=== PATIENT | male | born 1965 | race Caucasian/White ===

== ENCOUNTER → 2017-02-02 | Outpatient (CLI) | payer OTHER | LOC: BMCIMAGING 11:31 | PROVIDERS: ATTEND Emergency Medicine | DX: S22.32XA Fracture of one rib, left side, initial encounter for closed fracture (principal); M25.532 Pain in left wrist ==

== ENCOUNTER → 2017-02-14 | Outpatient (CLI) | payer BC, OTHER | LOC: BMCIMAGING 09:41 | PROVIDERS: ATTEND Family Medicine | DX: R07.81 Pleurodynia (principal); S22.32XA Fracture of one rib, left side, initial encounter for closed fracture | CPT/HCPCS: 71101-PO ==

== ENCOUNTER 2018-01-10 20:09 | Emergency (ER) | payer BC ==
[2018-01-10 20:46] LABS: PLATELET COUNT 214 10^3/uL (150-400)
--- NOTE | 2018-01-10 20:46 | EDPHY ---
H & P Stated Complaint: abd pain since Friday Time Seen by Provider: 01/10/18 20:22 HPI/ROS: CHIEF COMPLAINT: "I think I have a bowel obstruction" HISTORY OF PRESENT ILLNESS: 52-year-old male with abdominal history significant for remote bilateral inguinal herniorrhaphy complaining of progressive lower abdominal pain and distention for the past 5 days. No nausea or vomiting. No passing of gas. No testicular pain. No back or flank pain. No dyspnea. No trauma. PRIMARY CARE PROVIDER: REVIEW OF SYSTEMS: 10 systems reviewed and negative with the exception of the elements mentioned in the history of present illness PAST MEDICAL & SURGICAL HISTORY: Prior inguinal herniorrhaphy by Dr. Ramsey Kwon SOCIAL HISTORY:Nonsmoker, PHYSICAL EXAM (Prior to examination, patient consented to physical exam, hands were washed and my usual and customary physical exam procedures followed) 1) GENERAL: Well-developed, well-nourished, alert and oriented. Appears uncomfortable 2) HEAD: Normocephalic, atraumatic 3) HEENT: Pupils equal, round, reactive to light bilaterally. Sclera anicteric. Nasopharynx, oropharynx, clear, no lesions. Moist mucous membranes. 4) NECK: Full range of motion, no meningeal signs. 5) LUNGS: Clear auscultation bilaterally, no wheezes, no rhonchi, no retractions. 6) HEART: Regular rate and rhythm, no murmur, no heave, no gallop. 7) ABDOMEN: No guarding, tender to palpation left lower quadrant abdomen negative McBurney's, negative Archibald's, negative Rovsing's, negative peritoneal sign, 8) MUSCULOSKELETAL: Moving all extremities, no focal areas of tenderness, no obvious trauma. No peripheral edema or discoloration. 9) BACK: No CVA tenderness, no midline vertebral tenderness, no fluctuance, no step-off, no obvious trauma, no visual or palpable abnormality. 10) SKIN: No rash, no petechiae. 11) Psychiatric: Patient is oriented X 3, there is no agitation. DIFFERENTIAL DIAGNOSIS: [ My differential diagnosis includes, but is not limited to, acute appendicitis, acute cholecystitis, bowel obstruction, acute pancreatitis, testicular torsion, gastritis and urinary tract infection. The patient understands that this diagnosis is provisional and can never be 100% accurate. This is a partial list of diagnoses considered. These considerations are based on history, physical exam, past history and reassessment.] - Personal History Current Tetanus Diphtheria and Acellular Pertussis (TDAP): Yes - Medical/Surgical History Hx Asthma: No Hx Chronic Respiratory Disease: No Hx Diabetes: No Hx Cardiac Disease: No Hx Renal Disease: No Hx Cirrhosis: No Hx Alcoholism: No Hx HIV/AIDS: No Hx Splenectomy or Spleen Trauma: No Other PMH: GERD, hernia repair - Social History Smoking Status: Never smoked Constitutional: Initial Vital Signs Temperature (C) 37.0 C 01/10/18 20:12 Heart Rate 82 01/10/18 20:12 Respiratory Rate 18 01/10/18 20:12 Blood Pressure 151/107 H 01/10/18 20:12 O2 Sat (%) 98 01/10/18 20:12 O2 Delivery Mode Room Air Allergies/Adverse Reactions: No Known Allergies Allergy (Unverified 01/10/18 20:12) Home Medications: Medication Instructions Recorded Amoxicillin/Clavulanate Pot 875 mg PO TID #14 tab 01/10/18 [Augmentin 875 mg tab] Prilosec 01/10/18 Medical Decision Making - Diagnostics Imaging: Discussed imaging studies w/ blasting worker Radiologist ED Course/Re-evaluation: 11:11 p.m.: CT interpreted by radiologist is positive for diverticulitis without perforation or abscess. Images reviewed myself 11:30 p.m.: Re-evaluation, feeling well, discussed imaging results showing diverticulitis without perforation or abscess. Initially prescribed Cipro and Flagyl however he declines this. Will prescribe Augmentin. Patient feels comfortable being discharged. This time I do not think that admission to the hospital is indicated. He feels comfortable being discharged with usual customary abdominal and diverticulitis precautions and instructions. I saw this patient independently based on established practice protocols. Care of patient under supervision of secondary supervising physician Dr Chaves. - Data Points Laboratory Results: Laboratory Results 01/10/18 20:40 01/10/18 20:40 Medications Given: Discontinued Medications Amoxicillin/Clavulanate Potassium (Augmentin 875mg) 875 mg PO EDNOW ONE PRN Reason: Protocol Stop: 01/10/18 23:37 Last Admin: 01/10/18 23:38 Dose: 875 mg Ciprofloxacin (Cipro) 500 mg PO EDNOW ONE PRN Reason: Protocol Stop: 01/10/18 23:20 Last Admin: 01/10/18 23:38 Dose: Not Given Metronidazole (Flagyl) 500 mg PO EDNOW ONE PRN Reason: Protocol Stop: 01/10/18 23:20 Last Admin: 01/10/18 23:38 Dose: Not Given Departure - Departure Disposition: Home, Routine, Self-Care Clinical Impression: Diverticulitis Condition: Good Instructions: Diverticulitis (ED) Additional Instructions: Seek immediate medical attention if you develop new or worsening symptoms, if you develop fevers, chills, inability to tolerate oral intake or any other symptoms that concerns you. Referrals: Hal Briones MD [Primary Care Provider] - 2-3 days, call for appt. Prescriptions: Amoxicillin/Clavulanate Pot [Augmentin 875 mg tab] 875 mg PO TID #14 tab
[2018-01-10] MEDS ORDERED: metroNIDAZOLE 500 MG TAB PO ONE (23:19)
[2018-01-10] MEDS ORDERED: CIPROFLOXACIN 500 MG TAB PO ONE (23:19)
[2018-01-10] MEDS ORDERED: AMOXICILLIN/CLAVULANATE POT 875/125 MG TAB PO ONE (23:36)
[2018-01-10 23:44] VITALS: BP 146/88
== END 2018-01-10 23:43 | disposition home or self-care (01) ==
DX: K57.32 Diverticulitis of large intestine without perforation or abscess without bleeding (principal)

== ENCOUNTER 2018-09-26 17:01 | Emergency (ER) | payer BC ==
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
[2018-09-26 19:17] VITALS: BP 141/88
== END 2018-09-26 19:17 | disposition home or self-care (01) ==
PROC: 2W3EX1Z Immobilization of Right Hand using Splint (ICD-10-PCS; principal; 2018-09-26)
DX: M85.841 Other specified disorders of bone density and structure, right hand (principal); R93.7 Abnormal findings on diagnostic imaging of other parts of musculoskeletal system; S06.0X0A Concussion without loss of consciousness, initial encounter; V18.0XXA Pedal cycle driver injured in noncollision transport accident in nontraffic accident, initial encounter; Y93.55 Activity, bike riding; Y92.480 Sidewalk as the place of occurrence of the external cause